=== PATIENT | male | born 1960 | race Caucasian/White ===

== ENCOUNTER 2017-04-03 11:49 | Day surgery (SDC) | payer OTHER ==
[~2017-04-03] VITALS: Ht 170.2 cm; Wt 72.9 kg
[2017-04-03 12:18] VITALS: Ht 170.2 cm; Wt 72.9 kg
--- NOTE | 2017-04-03 13:13 | OPPN ---
Date/Time of Note Date/Time of Note DATE: 04/03/17 TIME: 13:11 Operative Report Preoperative Diagnosis Screening Postoperative Diagnosis Internal hemorrhoids No colon neoplasm is identified Operation/Procedure Performed Colonoscopy Surgeon see signature line endodontic assistant None Anesthesia: moderate sedation Estimated blood loss: none Transfusion Required none Specimen None Grafts/Implants none Complications none DEVORAH LYNN MD Apr 03, 2017 13:13
[2017-04-03] MEDS ORDERED: LISINOPRIL PO (13:19)
[2017-04-03] MEDS ORDERED: AMLODIPINE PO (13:19)
[2017-04-03] MEDS ORDERED: FENTAnyl 50 MCG/ML VIAL ONE (15:16)
[2017-04-03] MEDS ORDERED: MIDAZOLAM 1 MG/ML 2 ML INJ ONE ×2 (15:16)
--- NOTE | 2017-04-03 19:00 | GILP ---
DATE OF PROCEDURE: 04/03/2017 PREOPERATIVE DIAGNOSIS: Screening colonoscopy. POSTOPERATIVE DIAGNOSES: 1. Colonoscopy all the way to the cecum. 2. Internal hemorrhoids. 3. No colon neoplasm was identified. INDICATION: The patient is a 56-year-old male patient, who was scheduled for screening colonoscopy. The procedure and possible complications were well explained to the patient. He understood and consented to the procedure. DESCRIPTION OF PROCEDURE: Under influence of fentanyl and Versed, the colonoscope was carefully introduced in the rectum. Under direct vision, it was advanced all the way to the cecum. FINDINGS: The patient had internal hemorrhoids. No colon neoplasm was identified. The patient tolerated the procedure very well, and there was no complication from the procedure. At the end of the procedure, he was awake with stable vital signs. He was discharged home in the care of his family. IMPRESSION: 1. Colonoscopy all the way to the cecum. 2. Internal hemorrhoids. 3. No colon neoplasm was identified. PLAN: Screening colonoscopy in 10 years. Dictated By: MD SOLO Basurto/ángel/doris /Document#: [id number]
== END 2017-04-03 16:14 | disposition home or self-care (01) ==
LOC: GIL 11:49 → EDBD 13:30 → GIL 16:14
PROVIDERS: ATTEND Internal Medicine Gastroenterology
DX: Z12.11 Encounter for screening for malignant neoplasm of colon (principal); K64.8 Other hemorrhoids; I10 Essential (primary) hypertension
CPT/HCPCS: 45378; J2250; J3010